=== PATIENT | female | born 1970 | race Caucasian/White ===

== ENCOUNTER 2020-03-04 19:29 | Inpatient (IN) | payer OTHER ==
[~2020-03-04] VITALS: Ht 162.6 cm; Wt 83.6 kg
[2020-03-04 20:40] VITALS: BP 151/102
[2020-03-04 22:52] LABS: HEMATOCRIT 35.4 % (37.0-47.0); HEMOGLOBIN 11.6 gm/dL (12.0-15.0); MCH 28.5 pg (26.0-34.0); MCHC 32.8 g/dL (28.0-37.0); MCV 86.9 fL (80.0-100.0); RBC 4.07 mil/uL (4.20-5.00); RDW 15.4 % (10.5-14.5); WBC 7.7 thou/uL (4.0-11.0)
[2020-03-04 23:17] LABS: ANION GAP 8 mmol/L (7-16); BUN 10 mg/dL (7-18); CALCIUM 8.6 mg/dL (8.5-10.1); CHLORIDE 100 mmol/L (98-107); CO2 30 mmol/L (21-32); CREATININE 0.9 mg/dL (0.6-1.0); GLUCOSE 120 mg/dL (74-106); MAGNESIUM 2.3 mg/dL (1.8-2.4); POTASSIUM 3.4 mmol/L (3.5-5.1); SODIUM 138 mmol/L (136-145); TROPONIN-I <0.06 ng/mL (<0.06)
[2020-03-05] MEDS ORDERED: PREDNISONE 20 M20 M1 PO (00:11)
[2020-03-05] MEDS ORDERED: LEVOFLOXACIN750 MG PO (00:14)
[2020-03-05] MEDS ORDERED: OMEPRAZOLE40 MG PO (00:15)
[2020-03-05 00:34] VITALS: BP 148/97
[2020-03-05 03:15] VITALS: BP 131/90
--- NOTE | 2020-03-05 03:42 | NUR ---
2019 RECIEVED PER CART FROM [facility] PER EMS. ASSISTED TO BED. PATIENT WALKED WITH STEADY GAIT. ADMISSION PROCESS STARTED. NAOMI METAL ENGRAVER NOTIFIED OF ARRIVAL AND ORDERS RECIEVED. DENIES COMPLAINTS OF PAIN. STATES COUGHING WITH ICE WATER, TRIED NECTAR THICK LIQUIDS AND YOUGERT WHICH PATIENT ABLE TO TOLERATE. PATIENT STATES HAS BEEN COUGHING FOR AT LEAST TWO WEEKS, SOMETIMES COUGHING SO MUCH SHE CANT CATCH BREATH. PATIENTS VOICE IS HOARSE BUT ABLE TO TALK. WILL BE NPO PAST MIDNIGHT. COVID TEST SENT. O2 SAT 93% ON RA. ADMISSION PROCESS COMPLETED. WORKING ON GOALS AND PLAN OF CARE FOR NOC. CONTINUE TO ASSES BLANCHE. 0330 RESTING QUIETLY WITHOUT COMPLAINTS AT THIS TIME. AWAITING AM DOCTORS TO ARRIVE.
--- NOTE | 2020-03-05 08:24 | EKG ---
[facility] [place] [address] [address] [place] [address] ELECTROCARDIOGRAM REPORT Name: MIREYAEMILY MCCAINN Room #: 206-P ADM IN M.R.#: [id number] Admission: 03/04/20 Attend Phys: Kaye Lorenzo MD Discharge: Date of : 72 Report #: [id number] THIS REPORT FOR: cc: ANGELINA - Blanca family physician/PCP ANGELINA - Blanca family physician/PCP Randall Mcmillan MD [facility] THIS REPORT FOR: //name// [facility] Test Date: 2020-03-05 Test Time: 03:06:08 Pat Name: COLIN FOSS Department: Room: Gender: F Press Helper: ENEIDA Heard : 1970 Requested By: Kinjal Snowden Order Number: [id number] MD: Randall Mcmillan Measurements Intervals [place] Rate: 110 P: 56 WY: 137 QRS: 36 QRSD: 88 T: 69 QT: 319 QTc: 432 Interpretive Statements Sinus tachycardia Low voltage, extremity and precordial leads Baseline wander in lead(s) V1 No previous ECG available for comparison Electronically Signed On 03-05-2020 8:24:30 HALL SUPERVISOR by Randall Mcmillan [email or web address] <ELECTRONICALLY SIGNED> By: Randall Mcmillan MD, FACC 03/05/20 0824 5 5 Randall Mcmillan MD, FAC /EPI
--- NOTE | 2020-03-05 12:59 | 2DMMODE ---
[address] [address] D/M-MODE ECHOCARDIOGRAM Name: COLIN FOSS Room #: 206-P ADM IN M.R.#: [id number] Admission: 03/04/20 Attend Phys: Kaye Lorenzo MD Discharge: Date of : 72 Report #: [id number] THIS REPORT FOR: cc: ANGELINA - Blanca family physician/PCP ANGELINA - Blanca family physician/PCP Randall Mcmillan MD [facility] ~ APPROVED REPORT Study performed: 03/05/2020 10:13:10 EXAM: Comprehensive 2D, Doppler, and color-flow Echocardiogram Patient Location: Bedside Room #: 206 Status: routine BSA: 1.85 HR: 106 bpm Rhythm: Tachycardia Other Information Study Quality: Good Indications Dyspnea Pericardial Effusion 2D Dimensions IVC: 27.00 mm Volumes Left Atrial Volume (Systole) LA ESV Index: 13.00 mL/m2 Tricuspid Valve PA Pressure: 50.00 mmHg Left Ventricle The left ventricle is normal size. There is normal LV segmental wall motion. There is normal left ventricular wall thickness. The left ventricular systolic function is normal. The left ventricular ejection fraction is within the normal range. LVEF is 60-65%. Grade I - abnormal relaxation pattern. Right Ventricle [address] [address] 2 D/M-MODE ECHOCARDIOGRAM Name: COLIN FOSS Room #: 206-P ADM IN .R.#: [id number] Admission: 03/04/20 Attend Phys: Kaye Lorenzo MD Discharge: Date of : 72 Report #: [id number] The right ventricle is normal size. The right ventricular systolic function is normal. Atria The left atrium size is normal. The right atrium size is normal. Aortic Valve The aortic valve is normal in structure. No aortic regurgitation is present. There is no aortic valvular stenosis. Mitral Valve The mitral valve is normal in structure. There is no mitral valve regurgitation noted. No evidence of mitral valve stenosis. Tricuspid Valve The tricuspid valve is normal in structure. There is trace tricuspid regurgitation.Estimated PAP 50 mmHg. There is moderate pulmonary hypertension. Pulmonic Valve The pulmonary valve is normal in structure. There is no pulmonic valvular regurgitation. Great Vessels The aortic root is normal in size. IVC is normal in size and collapses >50% with inspiration. Pericardium Moderate circumferential pericardial effusion. <Conclusion> Normal left ventricle size and wall thickness with preserved ejection fraction of 60% Negative for segmental wall motion abnormality Normal right heart size and function Moderate pericardial effusion, no tamponade physiology No significant valvular dysfunction detected Trace of tricuspid valve insufficiency PA pressure systolic estimated at 50 mmHg <ELECTRONICALLY SIGNED> By: Randall Mcmillan MD, [facility] 03/05/20 1259 1259 1259 Randall Mcmillan MD, FACC /INF
--- NOTE | 2020-03-05 19:28 | NUR ---
ASSUMED CARE OF PT AT SHIFT CHANGE. ASSESSMENTS CHARTED. MEDS GIVEN PER JUN. PT A&OX4, NO C/O PAIN OR SOA. SWALLOW EVAL COMPLETE WITH DIET ORDERS CHARTED. MOTHER AT BEDSIDE MOST OF DAY. WILL CONTINUE TO MONITOR AND FOLLOW POC.
[2020-03-05 19:44] VITALS: BP 124/83
[2020-03-06 04:28] VITALS: BP 132/79
--- NOTE | 2020-03-06 04:43 | NUR ---
assumed pt care at the chnage of shift, pt is awake, alert and orientedx4, sr/st on the monitor, assessments as charted, denies pain, right arm edema, denies pain, meds given as per mar, no needs at this time, will continue to monitor
[2020-03-06 07:50] VITALS: BP 153/104
[2020-03-06 12:06] VITALS: BP 144/95
[2020-03-06 12:32] LABS: HEMATOCRIT 36.4 % (37.0-47.0); HEMOGLOBIN 11.8 gm/dL (12.0-15.0); MCH 27.9 pg (26.0-34.0); MCHC 32.5 g/dL (28.0-37.0); RBC 4.24 mil/uL (4.20-5.00); RDW 15.5 % (10.5-14.5); WBC 16.1 thou/uL (4.0-11.0)
[2020-03-06 12:43] LABS: INR 1.1; PROTIME 11.5 Seconds (9.3-11.4)
[2020-03-06 16:28] VITALS: BP 117/54
[2020-03-06 16:40] VITALS: BP 118/71
[2020-03-06 19:48] VITALS: BP 125/81
--- NOTE | 2020-03-06 19:53 | NUR ---
ASSUMMED PT CARE AT APPROXIMATELY 0700. PT A&O X4. ASSESSMENT CHARTED. FALL PRECAUTIONS IN PLACE. PT DENIES HAVING CHEST PAIN. PT HAS SOB ON EXERSION. O2 SAT STABLE. BLOOD SUGARS STABLE. VITAL SIGNS STABLE. PT DENIES HAVING ACUTE PAIN. INFORMED DR. ESTRELLA OF PT'S US RESULTS. ORDERS RECEIVED AND IMPLEMENTED. HEPARIN PROTOCOL STARTED. PT AND PT'S FAMILY MEMBER EDUCATED ABOUT POC. PT AND PT'S FAMILY STATED UNDERSTANDING AND DENIED HAVING FURTHER QUESTIONS. PT RECEIVING CT SCANS HS. PT COMFORTABLE. PT UP AD JESUS AND AMBULATES STEADY.
[2020-03-07 01:00] LABS: HEMATOCRIT 36.5 % (37.0-47.0); HEMOGLOBIN 11.7 gm/dL (12.0-15.0); MCH 27.8 pg (26.0-34.0); MCHC 32.1 g/dL (28.0-37.0); MCV 86.6 fL (80.0-100.0); RBC 4.22 mil/uL (4.20-5.00); RDW 15.6 % (10.5-14.5); WBC 17.1 thou/uL (4.0-11.0)
[2020-03-07 01:04] LABS: CALCIUM 8.8 mg/dL (8.5-10.1); CREATININE 1.1 mg/dL (0.6-1.0); POTASSIUM 3.7 mmol/L (3.5-5.1)
--- NOTE | 2020-03-07 02:48 | NUR ---
ASSESSMENTS CHARTED, MEDS CHARTED GIVEN. PATIENT RESTING IN ROOM DURING SHIFT. FLUIDS AND HEPARIN INFUSING DURING SHIFT. PATIENT HAD CT OF NECK, CHEST AND ABDOMEN D/T DVTS. RIGHT ARM IS ELEVATED AND DECREASING IN SIZE WITH TIME. SWALLOW STUDY TO BE REPEATED IN THE AM. FALL PRECAUTIONS IN PLACE DURING SHIFT. DENIED PAIN.
[2020-03-07 04:17] VITALS: BP 146/93
[2020-03-07 07:24] VITALS: BP 146/99
[2020-03-07 12:06] VITALS: BP 145/72
[2020-03-07 16:20] VITALS: BP 132/82
[2020-03-07 19:46] VITALS: BP 170/99
[2020-03-08] VITALS (17 sets, daily range): BP systolic 103–143; BP diastolic 65–94
--- NOTE | 2020-03-08 04:31 | NUR ---
CARE ASSUMED 1999. PT TRANSFERRED FROM , DUE TO CIWA PROTOCOL ASSESSMENTS. PT DENIES ANY PREVIOUS WITHDRAWALS. ADMITS DAILY DRINKING..CIWA INTIAL CIWA WAS 2. REPORTS MILD HEADACHE AND FLANK PAIN BUT DID NOT WAN ANYTHING FOR IT. ALERT AND ORIENTED X4. AD JESUS. POTASSIUM CURRENTLY STABLE AFTER REPLACEMENT. SR ON THE MONITOR. DENIES NAUSEA OR CHEST PAIN. WILL CONTINUE TO MONITOR.
--- NOTE | 2020-03-08 04:41 | NUR ---
CARE ASSUMED 1900. PT ALERT AND ORIENTED. VITALS STABLE. DENIES PAIN, NAUSEA OR VOMITING. PERSISTED DRY COUGH. VITALS STABLE . PT NPO SINCE MIDNIGHT FOR MEDIASTINOSCOPY. PT VERBALIZES UNDERSTANDING OF THE PENDING PROCEDURE. MAINTAINED ON HEPARIN DRIP OVERNIGHT. WILL CONTINUE TO MONITOR AND FOLLOW POC.
[2020-03-08 05:25] LABS: ABSOLUTE NEUTROPHILS 11.4 thou/uL (1.4-8.2); CALCIUM 8.8 mg/dL (8.5-10.1); HEMATOCRIT 34.5 % (37.0-47.0); HEMOGLOBIN 11.1 gm/dL (12.0-15.0); LYMPHOCYTES 4.1 % (24.0-44.0); MCH 27.9 pg (26.0-34.0); MCHC 32.2 g/dL (28.0-37.0); MCV 86.6 fL (80.0-100.0); MONOCYTES 2.9 % (1.0-8.0); PLATELET COUNT 315 thou/uL (150-400); POTASSIUM 4.1 mmol/L (3.5-5.1); RBC 3.99 mil/uL (4.20-5.00); RDW 16.2 % (10.5-14.5); TOTAL BILIRUBIN 0.4 mg/dL (0.2-1.0); TOTAL PROTEIN 6.8 g/dL (6.4-8.2); WBC 12.3 thou/uL (4.0-11.0)
--- NOTE | 2020-03-08 07:50 | HC ---
[facility] [place] [address] [address] CONSULTATION Name: COLIN FOSS Room #: 206-P ADM IN M.R.#: [id number] Admission: 03/04/20 Attend Phys: Kaye Lorenzo MD Discharge: Date of : 72 Report #: [id number] THIS REPORT FOR: cc: FAM - No family physician/PCP FAM - No family physician/PCP Vishnu Marquez MD ~ REASON FOR CONSULTATION: Right upper extremity DVT and mediastinal mass. HISTORY OF PRESENT ILLNESS: The patient is a very pleasant 50-year-old female from the [facility], who has about a 4-6 week history of some slight breathing difficulties, that had recently worsened. She also had some sweats, that are not drenching, also had some trouble with some mild dysphagia, also had noted some voice changes. Unfortunately, on her evaluation, she has developed a right arm DVT. CT chest shows mediastinal fullness, most likely consistent with lymphoma. No pulmonary masses. There is also a pericardial effusion. The patient also has left vocal cord paresis. No abdominal pelvic adenopathy. Also, no neck adenopathy on scans. Interestingly enough, the patient's went through treatment for what sounds like non-Hodgkin's lymphoma, being about 4-5 years ago. It sounds like they sought and received therapy in [place] may be because of some insurance issues, but also received alternative therapy with high dose vitamin C, sounds like he recurred, they had been seen by my partner, Dr. Ovi Weems, and is currently under therapy with him. 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 No tobacco use, no alcohol, no street drugs. FAMILY HISTORY: Mother, father and 4 brothers without specific issues. No children. She does have 3 dogs, a donkey and a mule if I understand at her house. MEDICATIONS: At this time in the hospital currently include methylprednisolone 40 mg IV q.12, lorazepam 0.2 q. 6 IV p.r.n., ipratropium and albuterol respiratory therapy, heparin on a weight-based protocol, insulin on a sliding scale, Zosyn 3.375 grams IV q. 8, guaifenesin, dextromethorphan b.i.d. p.r.n., melatonin 10 mg at bedtime p.r.n., famotidine 20 b.i.d. p.o., Zofran p.r.n., Tylenol p.r.n., also received earlier cefazolin and ketorolac. PHYSICAL EXAMINATION: GENERAL: The patient appears her stated age. VITAL SIGNS: Height is 5 feet 4 inches, which is 162.6 cm, weight 170 pounds or 77.1 kilograms. HEENT: Face appears symmetric. Mood is little bit anxious as you would expect. LYMPHATICS: No enlarged lymph nodes in the neck, axillary or inguinal region. [address] [address] CONSULTATION Name: COLIN FOSS Room #: 206-P ADM IN M.R.#: [id number] Admission: 03/04/20 Attend Phys: Kaye Lorenzo MD Discharge: Date of : 72 Report #: [id number] ABDOMEN: Mildly obese. EXTREMITIES: Without clubbing, cyanosis with the exception of the right arm. LABORATORY DATA: Shows a BUN of 13, creatinine of 1.1. Liver functions not on the [place] chart. Coags baseline were normal. C-reactive protein elevated at 70.4. White count on admission 7.7, hemoglobin 11.6, MCV 86.9, platelets 393. Sed rate 45. COVID by PCR negative. ASSESSMENT AND PLAN: 1. Mediastinal mass with complications, I have talked with Dr. Francis and plans for a mediastinoscopy tomorrow. The patient is aware that we are aware, this may be a lymphoma, but could also be other malignancy such as thymoma or esophageal cancer or infectious process. We will await diagnosis. 2. Vocal cord paresis probably explained by mediastinal mass. 3. Pericardial effusion, most likely secondary to mediastinal mass. 4. Right arm deep venous thrombosis, most likely contributed to by mass. I do not believe that additional hypercoag workup is probably indicated at this time. I agree with weight-based heparin treatment. We will most likely switch to other anticoagulants such as Eliquis, Xarelto or Pradaxa. 5. Lung disease, possible pneumonitis, continue antibiotics and steroids and inhalation therapy. 6. Hyperglycemia, sliding scale insulin. 7. Migraines. Medicines per others. We will follow with you. <ELECTRONICALLY SIGNED> By: Vishnu Marquez MD 03/08/20 0750 0828 99 Vishnu Marquez MD /nt
--- NOTE | 2020-03-08 15:15 | NUR ---
PT BACK FROM OR AT 1430. PT TRANFERRED TO BED, O2 AT 5L NC. PT DROWSY BUT ABLE TO ANSWER QUESTIONS, STATES SHE IS HAVING A LOT OF PAIN AT SURGICAL SITE. FREQUENT VITALS SET UP, PT PLACED ON VENTI MASK AT 50% SHE IS DROWSY AND MOUTH BREATHING AND HER SAT WAS LOW AFTER PAIN NURSE ADVOCATE AND SLEEPING SOUNDER. CHEST TUBE TO SUCTION AND YIP TO DD. FAMILY AT BEDSIDE. TELE WAS REAPPLIED. DR RIOS IN TO SEE PT. STATES THEY WILL REEVALUATE HEPARIN TOMORROW.
--- NOTE | 2020-03-08 16:50 | NUR ---
Patient admits as transfer from [facility] with hypoxia. Patient today rec sxbronch, mediastinoscopy, pericardiotomy. patient also admitted with DVT. patient resides at home in 2 story home with spouse. 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 [place] paperwork brought to hospitalist office. Attempted to meet with patient she was on oxygen and drowsy from procedure. Reviewed role of casemgt. Cont to follow to assist with dc planning. PT therapy evaled and signed off.
--- NOTE | 2020-03-08 18:34 | NUR ---
ABOUT 1800 PT STARTED WAKING UP MORE, CHANGED BACK TO NC AT 4L. PT ASKED FOR PAIN MEDICATION AND FRESH ICE IN ICE PACK. THESE WERE GIVEN TO PT AND PT REMOVED FROM FREQUENT VITALS
[2020-03-09 03:11] VITALS: BP 130/82
--- NOTE | 2020-03-09 04:19 | NUR ---
CARE ASSUMED AT 1900, POST OP BRONCHOSCOPY, MEDIASTINOSCOPY, AND SUBXIPHOID PERICARDIOTOMY. CHEST TUBE IN PLACE, ON 20 OF SUCTION. DRESSING CLEAN DRY AND INTACT. PT C/O SUBXIPHOID INCISION SITE PAIN. FENTANYL Q2 PRN GIVEN. PT RELUCTACT TO USE HYEDROCODONE FOR PAIN MANAGEMENT DUE CONCERNS OF, " AM NO NOT SURE I WILL RESPOND TO IT. ". PT EDUCATED ON NARCOTICs. BED TURNS TOLERATED. PT TOLERATING DIET SLOWLY. DENIES NAUSEA VOMITING OR DIARRHEA. NO OTHER CONCERNS. WILL CONTINUE TO MONITOR AND FOLLOW POC.
[2020-03-09 05:33] LABS: HEMATOCRIT 29.5 % (37.0-47.0); HEMOGLOBIN 9.5 gm/dL (12.0-15.0); MCH 28.2 pg (26.0-34.0); RBC 3.35 mil/uL (4.20-5.00); RDW 15.6 % (10.5-14.5); WBC 11.4 thou/uL (4.0-11.0)
[2020-03-09 11:59] VITALS: BP 125/79
[2020-03-09 16:50] VITALS: BP 114/65
--- NOTE | 2020-03-09 16:59 | NUR ---
RECEIVED PT'S CARE AROUND 0740; PT. ON BED; ALERT; C/O DIZZINESS JUST BEFORE SHIFT CHANGE; AT SHIFT CHANGE ST. NOT HAVING DIZZINESS; C/O PAIN REQUESTED PRN PAIN MEDICATION; NOT DUE; EDUCATED SENIOR USER EXPERIENCE ARCHITECT WILL BRING PRN PAIN MEDICATION WITH AM MEDICATION; ST. UNDERSTANDING; ODETTE ROUNDING IN THE AM REQUESTED YIP OUT AND PT. BEING OVER CHAIR; SENIOR USER EXPERIENCE ARCHITECT ST. UNDERSTANDING; DURING AM ASSESSMENT PT. AIXO4; C/O PAIN OVER CHEST; PRN PO PAIN MEDICATION GIVEN; RE-ASSESSMENT PT. ST. DECREASE PAIN; BACK ON THE BED DURING THE MORNING; EDUCATED ABOUT THE IMPORTANCE OF STAYING UP ON THE CHAIR; ST. UNDERSTANDING; BACK TO CHAIR DURING MEALS; C/O PAIN DURING THE EVENING PRN MEDICATION GIVEN; SR ON THE MONITOR; ASSESSMENT CHARGED; FOLLOWING POC; WILL PASS ON REPORT;
[2020-03-09 20:45] VITALS: BP 125/72
[2020-03-09 21:33] VITALS: BP 125/74
[2020-03-10 00:15] VITALS: BP 123/75
--- NOTE | 2020-03-10 04:28 | NUR ---
patients aptt result was 58.6 on the midnight draw. perthe written order it was a no change. orders for another at 0600. patient denies any pain since the start of this shift. pain meds given before her requested bedtime to promote sleep. patient did sleep approx.six to seven hours. patients conversation this shift was all her questions for her doctor. recommended her to write her questions down.
[2020-03-10 04:45] VITALS: BP 134/88
--- NOTE | 2020-03-10 11:04 | NUR ---
Discussed with patient possible home health at [place]. Patient reports she may be going to her moms home at [place]. She reports 2nd story in her home with steps and dogs. Discussed home health and can also see her at moms address. Patient agreeable to any home health agency that services [facility] and in network with [facility] interstate planner to inquire with agencies in [place].
--- NOTE | 2020-03-10 11:22 | NUR ---
VASCULAR ACCESS CONSULTED FOR DL PICC PER DR FLORENTINO, SPOKE WITH HIM REGARDING DVT R ARM. PT IS ON HEPAIN DRIP, UNABLE TO LAY DOWN FOR CVAD OR GOING TO IR. DISCUSSED WITH PT ,VERY HIGH RISK FOR ADDITIONAL DVT BUT PT UNABLE TO TOLERATE HOB DOWN AND HAS LIMITED PIV ACCESS. ANTHONY CEPHALIC WAS HUGELY PATENT WITH USG NO TOURNIQUET NEEDED. 4FR DL POWER PICC TRIMMED TO 49CM , FELT LINE MEET RESISTANCE AFTER PEEL AWAY SHEATH REMOVED. SEVERAL CXR SHOWED LINE CURLED ON SELF,PULLED BACK TO 6CM EXTERNAL WITH POWER FLUSHING. FINAL CXR SHOWED PICC IN DISTAL LEFT BRACHIOCEPHALIC WITH BRISK BR. SPOKE TO DR FUENTES AND PICC IN ADEQUATE PLACEMENT FOR USE. PICC RELEASED FOR IMMEDIATE USE PER PROTOCOL TO DEBBIE MEDELLIN. PT ON HEPARIN DRIP HAVING LARGE AMR BLEEDING AT INSERTION SITE. ABD AND COBAN APPLIED AFTER PRESSURE HELD. PT TOLERATED WELL
[2020-03-10 11:28] VITALS: BP 137/95
--- NOTE | 2020-03-10 13:02 | NUR ---
I have reviewed the documentation by BRIAN ROGERS from 03/10/20 to 03/10/20 and I concur with it. VISHAL ARGUELLES, PT, DPT
--- NOTE | 2020-03-10 14:03 | NUR ---
VASCULAR ACCESS CALLED BACK TO PATIENT, UNABLE GET BLOOD RETURN. BLEEDING AT SITE STOPPED. CONTINUE TO HAVE DIFFICULTIES WITH PICC LINE,IR CONSULTED FOR PICC REPLACEMENT SINCE MIDLINE IS NOT ENOUGH ACCESS FOR PATIENT. PATIENT AND MOTHER INFORMED OF PLAN.
[2020-03-10 15:47] VITALS: BP 138/97
[2020-03-10 15:52] LABS: MCH 27.8 pg (26.0-34.0); MCHC 32.4 g/dL (28.0-37.0); MCV 85.8 fL (80.0-100.0); RBC 4.2 mil/uL (4.20-5.00); RDW 16.1 % (10.5-14.5); WBC 15.4 thou/uL (4.0-11.0)
[2020-03-10 15:58] LABS: HEMOGLOBIN 11.7 gm/dL (12.0-15.0)
--- NOTE | 2020-03-10 16:23 | NUR ---
FAXED REFERRAL TO A HH SPOKE WITH GABRIELLE IN INTAKE THEY ARE OON WITH PT'S INSURANCE. FAXED REFERRAL TO [facility] SPOKE WITH INTAKE THEY ARE OON WITH PT'S INSURANCE. [facility] SPOKE WITH INTAKE THEY TAKE INSURANCE AND COVER [place] ([facility]) RECEIVED CONFIRMATION AND LEFT MSG WITH ADELINA IN INTAKE. DP TO FOLLOW.
--- NOTE | 2020-03-10 16:34 | HC ---
[facility] [place] [address] [address] CONSULTATION Name: COLIN FOSS Room #: 206-P ADM IN M.R.#: [id number] Admission: 03/04/20 Attend Phys: Kaye Lorenzo MD Discharge: Date of : 72 Report #: [id number] THIS REPORT FOR: cc: FAM - No family physician/PCP FAM - No family physician/PCP Angel Francis MD ~ DATE OF SERVICE: 03/06/2020 We were asked to see the patient by the hospitalists. HISTORY OF PRESENT ILLNESS: The patient is a 50-year-old admitted in transfer from [place]. The apparent reason for consult is pericardial effusion. The patient states that she was well until 2-3 weeks ago when she began to have cough and shortness of breath. The patient was seen approximately a week ago at [facility], diagnosed with acute bronchitis, and sent home with a PPI, antibiotics, and bronchodilators. The patient reports she was tested for COVID-19 at the time and was negative. The patient had worsening of symptoms and she returned to the Emergency Department at [place]. She apparently had a CT scan of the chest, which showed a large amount of slightly complex hyperdense pericardial fluid that appeared to have a mass effect in the central right pulmonary artery, demonstrating significant narrowing, also mass effect on the SVC. Unfortunately, none of these x-rays are available to be evaluated since the patient's transfer. Since transfer with this problem, the patient has had a transthoracic cardiac echo and this read as showing moderate circumferential pericardial effusion with no evidence of tamponade physiology. Since transfer to this facility, blood pressure has never been less than 118 and is typically 124-153 as a range. Chest x-ray obtained here today shows clear lung lezama, but some mediastinal widening. We also note that since admission, the patient has had the diagnosis of right upper extremity deep vein thrombosis. No pneumonia seen on the current x-ray. PAST MEDICAL HISTORY: In general, the patient states that she is healthy. She denies chronic disease. FAMILY HISTORY: Positive for diabetes, heart failure, renal insufficiency, but there is no history of thrombotic problems. ALLERGIES: None known. MEDICATIONS: To my knowledge, the patient takes no medication at home prior to all of this. [address] [address] CONSULTATION Name: COLIN FOSS Room #: [facility] IN ..#: [id number] Admission: 03/04/20 Attend Phys: Kaye Lorenzo MD Discharge: Date of : 72 Report #: [id number] REVIEW OF SYSTEMS: CONSTITUTIONAL: The patient does state that she had some episodes of fever at home prior to admission with sweats. EYES: Wears glasses. No complaints of vision change. HEENT: No complaints of headache. The patient does state that she has had a change in her voice and has had some swallowing difficulty that appears to be upper GI tract. CARDIAC: No chest pain per se. No palpitations. RESPIRATORY: As mentioned, short of breath with some cough. Denies sputum production. GASTROINTESTINAL: No nausea, vomiting blood. GENITOURINARY: No urgency, frequency, blood. MUSCULOSKELETAL: No bone or joint problems. SKIN: No rash or infection. NEUROLOGIC: No motor or sensory loss. EXTREMITIES: As mentioned, the patient has had complaints of swelling in the right upper extremity and had some swelling in the neck earlier. ENDOCRINE: No goiter, no tremor. PSYCHIATRIC: No anxiety, depression or hallucination. PHYSICAL EXAMINATION: GENERAL: The patient is lying in bed. Appears to be in comfort, but in no distress, but no activity. VITAL SIGNS: Temperature today is 36.6, pulse rate 119, respiratory rate 16, blood pressure 118/71, O2 sat 94 on room air. HEENT: No scleral icterus, no arcus. NECK: I can palpate no mass. No bruits are audible. CHEST: Clear to auscultation. HEART: Rhythm regular, slightly tachycardic. No murmur. ABDOMEN: Soft, no mass, no tenderness. EXTREMITIES: Some edema in the right upper extremity. No dependent edema in the legs. No clubbing or cyanosis. SKIN: No rash or infection. MUSCULOSKELETAL: No bone or joint asymmetry or deformity. PSYCHIATRIC: Shows insight into problem and is a pleasant lady, has a positive outlook. NEUROLOGIC: No motor or sensory loss. ASSESSMENT: It is difficult to give the meaningful consultation without more radiographic evidence. Certainly, it would be nice to get the CT ported or repeated. It is shearing that the echo shows no evidence for tamponade physiology, but that may need to be repeated. Pericardiotomy could be indicated for diagnosis if there was some concern about neoplasm as there does not appear [address] [address] CONSULTATION Name: COLIN FOSS Room #: 206-P [facility] IN M.R.#: [id number] Admission: 03/04/20 Attend Phys: Kaye Lorenzo MD Discharge: Date of : 72 Report #: [id number] to be an obvious infection, at least based on the chest x-ray and a normal white blood cell count. In any event, we will continue to follow the patient with you and look forward to seeing more radiographic studies as they accumulate, but have no further recommendation at this point. <ELECTRONICALLY SIGNED> By: Angel Francis MD 03/10/20 1634 1648 1115 Angel Francis MD /nt
--- NOTE | 2020-03-10 18:58 | NUR ---
ASSUMED CARE OF PT AT SHIFT CHANGE. ASSESSMENTS CHARTED. MEDS GIVEN PER JUN. PT A&OX4, C/O PAIN TREATED WITH PO MEDS WITH PARTIAL RELIEF. PICC LINE INSERTED. HEP DRIP RUNNING AT 16 U/K/HR, 13.1 MLS/HR. CHEST TUBE PUT OUT MINIMAL DRAINAGE. WILL CONTINUE TO MONITOR AND FOLLOW POC.
[2020-03-10 19:49] VITALS: BP 119/82
[2020-03-11 05:00] VITALS: BP 128/87
[2020-03-11 07:36] VITALS: BP 128/87
[2020-03-11 11:31] VITALS: BP 118/68
--- NOTE | 2020-03-11 13:34 | NUR ---
Nutrition: pt admitted with pericardial effusion, acute hypoxic respiratory failure, PNA. Has extensive soft tissue mass in mediastinum region. Is POD 3 bronchoscopy, mediastinoscopy and subxiphoid pericardotomy. Seen for LOS. Pericardial drain removed today. Pt reports stable weights around 175#. Recent weight 184# suspected error. Pt does require altered solids/liquids per ST due to dysphagia from mass. Eats fairly well, 50-100% of meals. Reviewed alternative menu choices with pt that are appropriate to diet order as she is voicing interest in this. patholog pending. Consider low nutrition risk.
--- NOTE | 2020-03-11 14:40 | NUR ---
I have reviewed the documentation by BRIAN ROGERS from 03/11/20 to 03/11/20 and I concur with it. VISHAL ARGUELLES, PT, DPT
--- NOTE | 2020-03-11 14:44 | NUR ---
Case discussed with the care team. Pt on heprin gtt with bridge to eloquis. CTS f/u care recommendation and appt noted. DC plan is home with HH [facility]. Will need to clarify dc address. Pt is working with therapy and on roomair. Will follow.
[2020-03-11 14:47] VITALS: BP 118/68
[2020-03-11 15:26] VITALS: BP 123/82
--- NOTE | 2020-03-11 18:26 | NUR ---
ASSUMED CARE PT SHIFT CHANGE. ASSESSMENTS CHARTED.MEDS GIVEN PER JUN. PT ALERT AND ORIENTED.VSS. DENIES PAIN. O2 SATS WNL ON RA. CHEST TUBE REMOVED BY CTS. DRESSING REMAINS IN PLACE. PT UP WALKING TOLERATING WELL. MOTHER AT BEDSIDE DURING SHIFT. TOLERATING MEALS WELL WITHOUT S/SX ASPIRATION. HOPEFUL FOR DC TOMORROW. CONTINUING TO MONITOR AND FOLLOW POC. WILL PASS ON REPORT TO ANNABEL MEDELLIN.
[2020-03-11 20:35] VITALS: BP 123/82
[2020-03-12 04:48] VITALS: BP 109/70
[2020-03-12 06:40] LABS: HEMATOCRIT 33.4 % (37.0-47.0); MCH 28.3 pg (26.0-34.0); MCHC 32.9 g/dL (28.0-37.0); MCV 86.1 fL (80.0-100.0); RBC 3.87 mil/uL (4.20-5.00); RDW 16.4 % (10.5-14.5); WBC 10.1 thou/uL (4.0-11.0)
[2020-03-12 07:38] VITALS: BP 118/75
[2020-03-12] MEDS ORDERED: ELIQUIS5 MG PO (08:58)
[2020-03-12] MEDS ORDERED: HYDROCODONE-ACE15 ML PO (09:20)
[2020-03-12] MEDS ORDERED: AUGMENTIN 500-1 EACH PO (09:24)
[2020-03-12] MEDS ORDERED: MAG-AL PLUS SUS30 ML PO (09:49)
--- NOTE | 2020-03-12 11:27 | NUR ---
PT PREPARED FOR DC TODAY, UP TO CHAIR TO EAT, PT AMBULATING PT ON STAIRS, ABLE TO USE THE BATHROOM WITHOUT ASSIST, REPORT GIVEN TO LACIE PIZARRO
[2020-03-12 11:52] VITALS: BP 99/79
--- NOTE | 2020-03-12 12:56 | NUR ---
PT DISCHARGING TODAY TO HOME WITH [facility] ([facility]) FAXED DC ORDERS/SUMMARY RECEIVED CONFIRMATION AND LEFT MSG WITH ADELINA IN INTAKE.
[2020-03-12 13:53] VITALS: BP 118/68
[2020-03-15] MEDS ORDERED: AUGMENTIN600 MG/5 M PO (11:48)
--- NOTE | 2020-03-15 20:06 | PATH ---
[facility] [place] [address] PATHOLOGY RPT PROCEDURE Name: TIFFANY FOSS Room #: 206-P DIS IN M.R.#: [id number] Admission: 03/04/20 Date of : 72 Discharge: 03/12/20 Report #: [id number] Path Case #: [id number] [facility] Accession Number: [id number] . 01 Material submitted: . PART A: lymph node - 2R LYMPH NODE FS PART B: pericardium - PERICARDIAL TISSUE . 01 Clinician provided ICD-10: I82.621 J96.01 . 01 Clinical history: . PERICARDIAL WINDOW MEDIASTINOSCOPY BRONCHOSCOPY PERICARDIAL EFFUSION . 02 Frozen section diagnosis: . FROZEN SECTION DIAGNOSIS (Dr. Shikha Antoine) . FSA1. Two R lymph nodes, biopsy: - Lymph node tissue along with histiocytes/macrophages submitted for flow cytometric analysis. . These findings are discussed with Dr. Angel Jo and a written report is placed in the patient's chart. . . GROSS DESCRIPTION A. Specimen is received fresh from the OR labeled with the patient's name, and "two R lymph nodes", consists of multiple red-kaplan to white-kaplan fragments of tissue measuring approximately 2 x 2 x 0.2 cm. Plant Protection Supervisor portions of the red-kaplan tissue are submitted for frozen section as FSA1, this is subsequently submitted for permanent section as A1. Parts of the unfrozen tissue is submitted for flow cytometric analysis and sent for the studies. Remainder of the unfrozen and left over tissue is submitted for permanent section only as A2. (IUV:heavy equipment sales manager; 03/08/2020) . Frozen section performed at [facility], [address], [place] [address]. IZV/QTP . 02 Diagnosis: A. 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 (SEE COMMENT) . B. "Pericardial tissue", biopsy: - Fibroadipose connective tissue with mesothelial lining consistent with pericardium showing focal fibrosis and mild chronic inflammation. . (CLW:ryan; 03/12/2020) MBR 03/15/2020 1910 Local . 02 Comment: Sections show fragments of lymph node with an atypical lymphoid infiltrate. From low power, there is a diffuse monotonous large lymphoid cell population. The lymphocytes have irregular nuclear contours, moderately condensed chromatin and abundant cytoplasm. Adjacent small mature-appearing lymphocytes with focal crush artifact are noted. A focal area contains reactive appearing germinal centers. . Due to the inconclusive flow cytometry findings, further evaluate the atypical lymphocytes and to identify cells in a tissue architectural context, properly controlled immunohistochemical stains are performed. . Block A2: CD20 - atypical lymphocytes diffusely reactive; PAX-5 - atypical lymphocytes diffusely reactive; CD3 - highlights adjacent and admixed T-cells; CD5 - stains T-cells, no B-cell co-expression; CD10 - atypical lymphocytes essentially nonreactive; BCL-6 - atypical lymphocytes reactive; MUM-1 - a majority of atypical lymphocytes reactive; BCL-2 - atypical lymphocytes reactive; CD23 - atypical lymphocytes reactive; Cyclin D1 - lacks diffuse nuclear reactivity; CD68 - stains numerous admixed histiocytes; Ki67 - proliferative index of approximately 60-70%; AE1/AE3 - nonreactive; [place] and lambda in situ hybridization - admixed plasma cells polytypic. . Flow cytometric immunophenotypic analysis was performed at [facility]. The diagnosis is "no significant lymphoid immunophenotypic abnormalities detected." There are 80% lymphocytes. Of the lymphocytes, there are 30.1% polyclonal B-cells (kappa/lambda ratio of 1.4:1). T-cells have a CD4/CD8 ratio of 1.7 and no aberrant T-cell antigen expression. Please see separate flow cytometry report from [facility] ([id number]). . Overall, the diagnosis is involvement of the lymph node by diffuse large B-cell lymphoma. It is most consistent with a non-germinal center cell [facility] [address] [place] [address] PATHOLOGY RPT PROCEDURE Name: TIFFANY FOSS Room #: 206-P DIS IN M.R.#: [id number] Admission: 03/04/20 Date of : 72 Discharge: 03/12/20 Report #: [id number] Path Case #: [id number] subtype. A B-cell lymphoma FISH panel is pending and will be reported as an addendum. Admixed reactive appearing lymphoid tissue is also noted. Clinical and radiographic correlation is required. The case is co-reviewed with Dr. Kelsie Vallejo and Dr. Shikha Antoine. The case is discussed with Dr. Vishnu Marquez on 03/15/20 at 1:00 PM. . (CLW:ryan; 03/12/2020) . 02 Electronically signed: . Cara Chandler MD, Pathologist NPI- [id number] . 01 Gross description: . A. SEE FROZEN SECTION FOR GROSS DESCRIPTION . B. The specimen is received in formalin, labeled "Tiffany Foss, pericardial tissue" and consists of a segment of yellow pink fibrous tissue measuring 1.1 x 0.8 x 0.3 cm which is entirely submitted in B1. (SDY; 03/08/2020) SYU/SYU 03/15/2020 1910 Local . 02 Pathologist provided ICD-10: C85.12 . 02 CPT . 227006, 555536, 190175, T61160, A14880, M58723, S09641, [id number] Specimen Comment: A courtesy copy of this report has been sent to [phone] Specimen Comment: Report sent to Performed at: 01 [facility] [address] [place] [address] [address], [place] [id number] MD Romain Fajardo MD Phone: [phone] Performed at: [address] [facility] [address] [id number] MD Shikha Antoine MD Phone: [phone]
--- NOTE | 2020-03-16 14:35 | NUR ---
Follow up call rec'd from pt. [facility] does not provide any HH services. Sanitarian Inspector verified with Jocelyne at the clinic. Dr. David Case from that clinic will follow for hh if we can locate a providing agency for DONOVAN Castro. Unfortunately, show card writer [facility] with [facility] and they are out of network with the pt's ins plan. [facility] can not staff it. [facility], [facility], [facility], [facility], [facility], [facility], [facility], and [facility] do not go to that area. Sanitarian Inspector spoke with pt's mother,with whom she is staying, Pt [facility] phone with [facility] to schedule her PET scan and appt this week. They will have them look at her PICC line and incision at that appointment. She will let me know if they have trouble making those f/u appts. [phone]
--- NOTE | 2020-03-18 11:04 | O ---
[facility] [place] [address] OPERATIVE REPORT Name: COLIN FOSS Room #: 206-P [facility] IN M.R.#: [id number] Admission: 03/04/20 Attend Phys: Kaye Lorenzo MD Discharge: 03/12/20 Date of : 72 Report #: [id number] THIS REPORT FOR: cc: ANGELINA - No family physician/PCP FAM - No family physician/PCP Angel Francis MD ~ CC: [facility] physician/PCP Kaye Lorenzo DATE OF SERVICE: 03/08/2020 PREOPERATIVE DIAGNOSES: Mediastinal adenopathy and pericardial effusion. POSTOPERATIVE DIAGNOSES: Mediastinal adenopathy and pericardial effusion. OPERATION: Bronchoscopy, mediastinoscopy and subxiphoid pericardiotomy. SURGEON: Angel Francis MD HYDROPULPER OPERATOR: ANKITA Rich. ANESTHESIA: General. INDICATIONS: The patient is a 50-year-old admitted with a pericardial effusion and mediastinal adenopathy with a presentation suspicious for lymphoma. It should be mentioned that this is an operative report replacing one that was either not transcribed or lost somehow in the dictation system. FINDINGS AND TECHNIQUE: After general anesthesia was established, flexible diagnostic bronchoscopy was performed. No endobronchial lesions were noted. The patient was positioned and prepped and draped for mediastinoscopy. A low collar incision was made. Pretracheal space was entered. The mediastinoscope was passed. Enlarged mediastinal lymph nodes in the upper mediastinum, station 2 and 2R were identified. Bites of these were taken and submitted for both frozen section and permanent pathology as well as culture. The appearance of the tumor was that of fish flesh with a pseudocapsule around it. When sufficient tissue was submitted, hemostasis was ascertained and the wound was closed in layers. An incision was made in the lower midline of the chest and upper abdomen to expose the xiphoid. The xiphoid process itself was elevated and the pericardial [address] [address] OPERATIVE REPORT Name: COLIN FOSS Room #: 206-P [facility] IN .R.#: [id number] Admission: 03/04/20 Attend Phys: Kaye Lorenzo MD Discharge: 03/12/20 Date of : 72 Report #: [id number] space was cleared. An incision was made into the anterior pericardium and an aperture was created. The tissue removed, was submitted for permanent pathology. Approximately 300 mL of straw-colored fluid was aspirated. The pericardium and epicardium themselves looked relatively normal. A 24 Fan was brought through separate stab wound and placed in a dependent position in the pericardium and secured in place. The subxiphoid incision was then closed in layers and the patient was taken to the recovery area in good condition having tolerated the procedure well. There was no evidence of tamponade physiology through the operation. All counts reported as correct. <ELECTRONICALLY SIGNED> By: Angel Francis MD 03/18/20 1104 1147 1221 Angel Francis MD /delbert
== END 2020-03-12 14:29 | disposition home health service (06) | DRG 163 ==
LOC: 2N 19:29
PROVIDERS: Hospitalist; Internal Medicine Hematology & Oncology; Nurse Practitioner Family; ADMIT Internal Medicine; ATTEND Internal Medicine
DX: J98.59 Other diseases of mediastinum, not elsewhere classified (principal); J18.9 Pneumonia, unspecified organism; J96.01 Acute respiratory failure with hypoxia; I31.3 Pericardial effusion (noninflammatory); I82.621 Acute embolism and thrombosis of deep veins of right upper extremity; I82.B11 Acute embolism and thrombosis of right subclavian vein; I82.C11 Acute embolism and thrombosis of right internal jugular vein; R59.0 Localized enlarged lymph nodes; J45.909 Unspecified asthma, uncomplicated; K21.9 Gastro-esophageal reflux disease without esophagitis; I10 Essential (primary) hypertension; G43.909 Migraine, unspecified, not intractable, without status migrainosus; J38.00 Paralysis of vocal cords and larynx, unspecified; R73.9 Hyperglycemia, unspecified; Z20.828 Contact with and (suspected) exposure to other viral communicable diseases; Z90.711 Acquired absence of uterus with remaining cervical stump
CPT/HCPCS: 10081; 27000; 50010; 50101; 50386; 50455; 50497; 50607; 50649; 50662; 51467; 53358; 54118; 56524; 56525; 56526; 56527; 56528; 56668; 57092; 57093; 62110; 62900; 65020; 65040; 65130; 70005

== ENCOUNTER → 2020-03-31 | Outpatient (CLI) | payer OTHER ==
[~2020-03-31] MED LIST: AUGMENTIN 500-1 EACH PO; AUGMENTIN600 MG/5 M PO; ELIQUIS5 MG PO; HYDROCODONE-ACE15 ML PO; LEVOFLOXACIN750 MG PO; MAG-AL PLUS SUS30 ML PO; OMEPRAZOLE40 MG PO; PREDNISONE 20 M20 M1 PO
== END ==
LOC: SJCVCIMAG 11:52
PROVIDERS: ATTEND Internal Medicine
DX: I08.8 Other rheumatic multiple valve diseases (principal); I31.3 Pericardial effusion (noninflammatory)